=== PATIENT | female | born 2000 | race Caucasian/White ===

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

== ENCOUNTER 2022-08-25 02:43 | Emergency (ER) | payer BC, OTHER ==
[2022-08-25 02:48] VITALS: TEMP 97.9
--- NOTE | 2022-08-25 03:09 | ED ---
General Adult HPI <Sangita Sunshine - Last Filed: 08/25/22 05:01> - General Source: patient, RN notes reviewed Mode of arrival: ambulatory Limitations: no limitations <Jami Borges - Last Filed: 08/25/22 15:00> - General Chief complaint: Chest Pain Stated complaint: Chest pain, back pain Time Seen by Provider: 08/25/22 02:52 - History of Present Illness Initial comments: Patient is a 21-year-old female presenting to the emergency room with complaints of chest pain ongoing for approximately 9 hours radiating posteriorly to her back. She states that this pain is worse with movement and seems to be slowly intensifying. In addition to her chest pain symptoms she is complaining of a sore throat and bilateral ear pain. She reports not taking any medications to help alleviate the symptoms. She denies any shortness of breath, abdominal pain, nausea, vomiting, diaphoresis, headache, dizziness, lethargy, fevers or chills. She denies any known exposure to COVID or influenza. She has no si gnificant past medical history and does not take any medications on a regular basis. (Jami Borges) - Related Data Home Medications Medication Instructions Recorded Confirmed No Known Home Medications 07/04/18 07/04/18 Allergies Allergy/AdvReac Type Severity Reaction Status Date / Time Penicillins Allergy Rash/Hives Verified 08/25/22 02:45 Review of Systems ROS Other: All systems not noted in ROS Statement are negative. <Sangita Sunshine - Last Filed: 08/25/22 05:01> ROS Other: All systems not noted in ROS Statement are negative. <Jami Borges - Last Filed: 08/25/22 15:00> ROS Statement: Those systems with pertinent positive or pertinent negative responses have been documented in the HPI. Past Medical History Past Medical History: No Reported History History of Any Multi-Drug Resistant Organisms: None Reported Past Surgical History: No Surgical Hx Reported Past Psychological History: No Psychological Hx Reported Smoking Status: Never smoker Past Alcohol Use History: Occasional Past Drug Use History: None Reported <Jami Borges - Last Filed: 08/25/22 15:00> General Exam Limitations: no limitations General appearance: alert, in no apparent distress Head exam: Present: atraumatic, normocephalic, normal inspection Eye exam: Present: normal appearance, PERRL, EOMI. Absent: scleral icterus, conjunctival injection, periorbital swelling ENT exam: Present: mucous membranes moist, normal external ear exam Expanded Ear exam: Present: normal external inspection TM/Canal exam: Effusion: Right TM, Left TM (serous) Mouth exam: Present: normal external inspection Teeth exam: Present: dental caries Throat exam: tonsillomegaly, other (Mild pharyngeal erythema). negative: tonsi llar exudate Neck exam: Present: normal inspection, tenderness, lymphadenopathy (shotty) Respiratory exam: Present: normal lung sounds bilaterally, chest wall tenderness. Absent: respiratory distress, wheezes, rales, rhonchi, stridor Cardiovascular Exam: Present: regular rate, normal rhythm, normal heart sounds. Absent: systolic murmur, diastolic murmur, rubs, gallop, clicks GI/Abdominal exam: Present: soft, normal bowel sounds. Absent: distended, tenderness, guarding, rebound, rigid Extremities exam: Present: normal inspection. Absent: pedal edema, joint swelling Back exam: Present: normal inspection, full ROM Neurological exam: Present: alert, oriented X3, CN II-XII intact Psychiatric exam: Present: normal affect, normal mood Skin exam: Present: warm, dry, intact, normal color. Absent: rash <Jami Borges - Last Filed: 08/25/22 15:00> Course Vital Signs 08/25/22 08/25/22 02:46 05:20 Temperature 97.9 F Pulse Rate 119 H 92 Respiratory 16 15 Rate Blood Pressure 111/64 101/69 O2 Sat by Pulse 100 98 Oximetry Medical Decision Making - Lab Data Result diagrams: 08/25/22 03:08 08/25/22 03:08 <Sangita Sunshine - Last Filed: 08/25/22 05:01> - Lab Data Result diagrams: 08/25/22 03:08 08/25/22 03:08 - Radiology Data Radiology results: report reviewed, image reviewed <Jami Borges - Last Filed: 08/25/22 15:00> - Medical Decision Making 21-year-old female presenting to the emergency room with complaints of chest pain radiating posteriorly along with sore throat and ear pain bilaterally ongoing for approximately 9 hours without any medication taken to attempt to alleviate symptoms. Reports movement aggravates symptoms. High probability for upper respiratory symptoms with pleurisy however in the setting of chest pain with posterior radiation and mild tachycardia will obtain EKG, chest x-ray along with CBC, CMP magnesium, troponin, cephid swab and strep throat swab. Abrupt onset less than 24 hours no indication for antibiotic therapy. Will give dose of IV Toradol for pain and monitor response. EKG shows mild sinus tachycardia. CBC reveals slight Doug elevated WBC at 11.5 with neutrophils of 9.4. CBC shows elevated total bilirubin at 2.9 previously elevated at 2.0. Liver enzymes normal. Troponin negative. Magnesium normal. Chest x-ray image interpreted by me shows no acute cardiopulmonary process; Lungs are clear, No cardiomegaly. Radiologist report also reviewed. Elevated bilirubin level and encouraged follow-up with primary care provider and likely gastrointestinal specialist encouraged. Cephid swab along with strep throat swabs all currently pending at 0400. Case discussed with and transferred over to Dr. Sunshine for further evaluation of pending studies and disposition. (Jami Borges) - Lab Data Lab Results 08/25/22 08/25/22 08/25/22 Range/Units 03:08 03:08 03:08 WBC 11.2 H (3.8-10.6) k/uL RBC 4.54 (3.80-5.40) m/uL Hgb 14.1 (11.4-16.0) gm/dL Hct 40.9 (34.0-46.0) % MCV 90.2 (80.0-100.0) fL MCH 31.1 (25.0-35.0) pg MCHC 34.5 (31.0-37.0) g/dL RDW 12.1 (11.5-15.5) % Plt Count 193 (150-450) k/uL MPV 9.2 Neutrophils % 85 % Lymphocytes % 10 % Monocytes % 4 % Eosinophils % 1 % Basophils % 0 % Neutrophils # 9.5 H (1.3-7.7) k/uL Lymphocytes # 1.1 (1.0-4.8) k/uL Monocytes # 0.5 (0-1.0) k/uL Eosinophils # 0.1 (0-0.7) k/uL Basophils # 0.0 (0-0.2) k/uL Sodium 137 (137-145) mmol/L Potassium 4.1 (3.5-5.1) mmol/L Chloride 104 (98-107) mmol/L Carbon Dioxide 24 (22-30) mmol/L Anion Gap 9 mmol/L BUN 11 (7-17) mg/dL Creatinine 0.63 (0.52-1.04) mg/dL Est GFR (CKD-EPI)AfAm >90 (>60 ml/min/1.73 sqM) Est GFR (CKD-EPI)NonAf >90 (>60 ml/min/1.73 sqM) Glucose 127 H (74-99) mg/dL Calcium 9.0 (8.4-10.2) mg/dL Magnesium 1.8 (1.6-2.3) mg/dL Total Bilirubin 2.9 H (0.2-1.3) mg/dL AST 24 (14-36) U/L ALT 14 (4-34) U/L Alkaline Phosphatase 80 (38-126) U/L Troponin I (0.000-0.034) ng/mL Total Protein 7.5 (6.3-8.2) g/dL Albumin 4.9 (3.5-5.0) g/dL Influenza Type A (PCR) Not Detected (Not Detectd) Influenza Type B (PCR) Not Detected (Not Detectd) RSV (PCR) Not Detected (Not Detectd) SARS-CoV-2 (PCR) Not Detected (Not Detectd) Group A Strep (PCR) (Not Detectd) 08/25/22 08/25/22 Range/Units 03:08 03:18 WBC (3.8-10.6) k/uL RBC (3.80-5.40) m/uL Hgb (11.4-16.0) gm/dL Hct (34.0-46.0) % MCV (80.0-100.0) fL MCH (25.0-35.0) pg MCHC (31.0-37.0) g/dL RDW (11.5-15.5) % Plt Count (150-450) k/uL MPV Neutrophils % % Lymphocytes % % Monocytes % % Eosinophils % % Basophils % % Neutrophils # (1.3-7.7) k/uL Lymphocytes # (1.0-4.8) k/uL Monocytes # (0-1.0) k/uL Eosinophils # (0-0.7) k/uL Basophils # (0-0.2) k/uL Sodium (137-145) mmol/L Potassium (3.5-5.1) mmol/L Chloride (98-107) mmol/L Carbon Dioxide (22-30) mmol/L Anion Gap mmol/L BUN (7-17) mg/dL Creatinine (0.52-1.04) mg/dL Est GFR (CKD-EPI)AfAm (>60 ml/min/1.73 sqM) Est GFR (CKD-EPI)NonAf (>60 ml/min/1.73 sqM) Glucose (74-99) mg/dL Calcium (8.4-10.2) mg/dL Magnesium (1.6-2.3) mg/dL Total Bilirubin (0.2-1.3) mg/dL AST (14-36) U/L ALT (4-34) U/L Alkaline Phosphatase (38-126) U/L Troponin I <0.012 (0.000-0.034) ng/mL Total Protein (6.3-8.2) g/dL Albumin (3.5-5.0) g/dL Influenza Type A (PCR) (Not Detectd) Influenza Type B (PCR) (Not Detectd) RSV (PCR) (Not Detectd) SARS-CoV-2 (PCR) (Not Detectd) Group A Strep (PCR) NOT DETECTED (Not Detectd) - EKG Data EKG Comments: EKG completed at 0308 200 by me shows sinus tachycardia, ventricular rate 111 bpm, ID interval 156 ms, QRS duration 71 ms, QT/QTC 315/380 ms, PRT axes 64, 42, 49 (Jami Borges) - Radiology Data Two-view chest x-ray impression my radiologist normal chest. Heart and mediastinum are normal. Lungs are clear. Diaphragm is normal. Bony thorax is normal. (Jami Borges) Disposition Is patient prescribed a controlled substance at d/c from ED?: No Time of Disposition: 05:09 <Sangita Sunshine - Last Filed: 08/25/22 05:01> <Jami Borges - Last Filed: 08/25/22 15:00> Clinical Impression: Chest pain Disposition: HOME SELF-CARE Condition: Stable Instructions (If sedation given, give patient instructions): Chest Pain (ED) Additional Instructions: Please take 400 mg of Motrin every 6 hours for pain. Call the cardiology office to have an echo performed. Return to the emergency room for any new or wors ening symptoms Referrals: None,Stated [Primary Care Provider] - 1-2 days [facility] [Provider Group] - 1-2 days
[2022-08-25 03:20] LABS: Basophils % (A) 0 %; Eosinophils # (A) 0.1 k/uL (0-0.7); Eosinophils % (A) 1 %; HCT 40.9 % (34.0-46.0); HGB 14.1 gm/dL (11.4-16.0); Lymphocytes # (A) 1.1 k/uL (1.0-4.8); Lymphocytes % (A) 10 %; MCH 31.1 pg (25.0-35.0); MCHC 34.5 g/dL (31.0-37.0); MCV 90.2 fL (80.0-100.0); Mean Platelet Volume 9.2; Monocytes # (A) 0.5 k/uL (0-1.0); Monocytes % (A) 4 %; Neutrophils # (A) 9.5 k/uL (1.3-7.7); Neutrophils % (A) 85 %; Platelet Count 193 k/uL (150-450); RBC 4.54 m/uL (3.80-5.40); RDW 12.1 % (11.5-15.5); WBC 11.2 k/uL (3.8-10.6)
[2022-08-25] MEDS ORDERED: KETOROLAC 15 MG/ML 1 ML VIAL IVP STA (03:30)
[2022-08-25 03:36] LABS: ALT 14 U/L (4-34); AST 24 U/L (14-36); African American GFR (CKD) >90 (>60 ml/min/1.73 sqM); Albumin 4.9 g/dL (3.5-5.0); Alkaline Phosphatase 80 U/L (38-126); Anion Gap 9 mmol/L; Blood Urea Nitrogen 11 mg/dL (7-17); Carbon Dioxide 24 mmol/L (22-30); Chloride 104 mmol/L (98-107); Glucose 127 mg/dL (74-99); Magnesium 1.8 mg/dL (1.6-2.3); Non-African American GFR(CKD) >90 (>60 ml/min/1.73 sqM); Potassium 4.1 mmol/L (3.5-5.1); Sodium 137 mmol/L (137-145); Total Bilirubin 2.9 mg/dL (0.2-1.3); Total Protein 7.5 g/dL (6.3-8.2)
--- NOTE | 2022-08-25 03:40 | XR ---
EXAMINATION TYPE: XR chest 2V DATE OF EXAM: 08/25/2022 COMPARISON: NONE HISTORY: Chest pain TECHNIQUE: FINDINGS: Heart and mediastinum are normal. Lungs are clear. Diaphragm is normal. Bony thorax is norm al. IMPRESSION: Normal chest.
[2022-08-25] MEDS ORDERED: dexAMETHasone 2 MG TAB PO STA (05:01)
[2022-08-25 05:20] VITALS: BP 101/69; PULSE 92; RESP 15
== END 2022-08-25 05:20 | disposition home or self-care (01) ==
LOC: EC 02:43
DX: R07.9 Chest pain, unspecified (principal); Z88.0 Allergy status to penicillin; Z20.822 Contact with and (suspected) exposure to COVID-19
CPT/HCPCS: 36415; 93005; 87651; 80053; 83735; 84484; 85025; 87636; 71046; 99285; 96374; J8540; J1885